=== PATIENT | male | born 1995 | race Caucasian/White ===

== ENCOUNTER 2018-05-25 15:21 | Emergency (ER) | payer OTHER ==
[2018-05-25 15:26] VITALS: BP 143/82
--- NOTE | 2018-05-25 16:35 | EDPHY ---
H & P Time Seen by Provider: 05/25/18 15:32 HPI/ROS: HPI Left shoulder injury. 22-year-old male by private vehicle from work. He works as a laborer construction or leak gang. He reports that he injured the labrum of his left shoulder [address] Thaddeus Castaneda operated on the left shoulder at that time. While at work today he was pulling on a piece of rebar with his left upper extremity. He reports that he was trying to bend it straight. He reports that after doing this he developed pain to the lateral musculature of the left shoulder and deltoid region. He denies any loss of sensation or weakness in his left upper extremity. No history of fall or other traumatic impact. No other complaint. ROS: Constitutional: No fever, no chills. No weakness. Musculoskeletal: No back pain. No neck pain. As above. Skin: No rashes. No lacerations or abrasions. Neurological: No headache. No focal weakness or altered sensation. Past medical history: As above. Social history: Nonsmoker. No alcohol. Here by himself. As above. Physical Exam: General Appearance: Alert, no distress. This patient is responding to questions appropriately and in full sentences. This patient appears well- hydrated and well-nourished. Eyes: Pupils equal and round no pallor or injection. No lid edema, erythema or injection. Left shoulder exam: No gross deformity indicative of subluxation or dislocation. He has vague tenderness on palpation over the lateral aspect of the left deltoid musculature. He does have pain induced with passive and active abduction and flexion. The axillary nerve distribution is intact. The left upper extremity is neurovascularly intact. No tenderness on palpation of the clavicle or the AC joint area. No erythema, warmth or edema noted. Neurological: Motor sensory function is grossly intact. Cranial nerves are normal. Gait is normal. Skin: Warm and dry, no rashes. Extremities are symmetrical. All joints range without pain or impingement except noted. Psychiatric: No agitation. No depression. Database: EKG: Imaging: Left shoulder x-ray series: Negative for fracture, subluxation, dislocation. Interpreted by me. Procedures: Emergency department course: Triage vital signs reviewed. He is mildly hypertensive. Triage vital signs are otherwise normal. Results of his x-rays discussed with him. I feel that this is more of a deltoid musculature strain verses a glenohumeral joint problem. He does have a sling from his prior injury. I feel he is safe for discharge. I will treat him with high-dose ibuprofen for the next 3 days. Limited activity at work. He will follow up with workelrama's Comp as well as Dr. Thaddeus Castaneda. Return to emergency department precautions have been reviewed with him. All of his questions were answered. He was discharged in good condition. Differential Diagnosis: The differential diagnosis on this patient includes but is not limited to left shoulder strain. Acute fracture, subluxation, dislocation to the left shoulder unlikely. This represents a partial list of diagnoses considered. These considerations are based on history, physical exam, past history, reassessment and diagnostic testing. Smoking Status: Never smoked Constitutional: Initial Vital Signs Temperature (C) 36.7 C 05/25/18 15:23 Heart Rate 73 05/25/18 15:23 Respiratory Rate 18 05/25/18 15:23 Blood Pressure 143/82 H 05/25/18 15:23 O2 Sat (%) 99 05/25/18 15:23 O2 Delivery Mode Room Air Allergies/Adverse Reactions: COTTONWOOD Allergy (Mild, Uncoded 05/25/18 15:23) Congestion Home Medications: Medication Instructions Recorded Albuterol Hfa Anes Only [Proair 2 puffs IH QID 03/14/12 Hfa Icu (RX)] Amoxicillin Trihydrate [Amoxil 250 250 mg PO Q8 03/14/12 mg CAP (RX)] HYDROcodone/CPM TUSSIONEX 5 ml PO Q12 #50 ml 03/14/12 [Tussionex Suspension (RX)] predniSONE 10 mg PO DAILY #21 tab.ds.pk 03/14/12 Departure - Departure Disposition: Home, Routine, Self-Care Clinical Impression: Left shoulder strain Condition: Good Instructions: Shoulder Sprain (ED) Additional Instructions: Read and follow provided instructions. Limited activity at work. Avoid any activity which induces pain in your left shoulder. Follow-up with your workman's Comp physician or Dr. Thaddeus Castaneda, a orthopedist , in the next 2-3 days for re-evaluation as discussed. Ibuprofen dosin mg every 6 hours with meals for the next 3 days only. Take only as needed for pain. Return to the emergency department for worsening pain, swelling, discoloration, loss of sensation or weakness or other serious concerns. Referrals: Thaddeus Castaneda MD [Primary Care Provider] - As per Instructions
== END 2018-05-25 17:15 | disposition home or self-care (01) ==
DX: S43.92XA Sprain of unspecified parts of left shoulder girdle, initial encounter (principal); X50.0XXA Overexertion from strenuous movement or load, initial encounter; Y93.H3 Activity, building and construction; Y99.0 Civilian activity done for income or pay
CPT/HCPCS: A4565